=== PATIENT | female | born 1965 | race Native Hawaiian/Other Pacific Islander ===

== ENCOUNTER 2017-06-24 11:52 | Emergency (ER) | payer OTHER ==
[2017-06-24] MEDS: KETOROLAC 30 MG/ML VIAL (J1885) IV (12:48)
[2017-06-24 12:57] LABS: BASO % 0.4 % (0.0-1.0); EOS # 0.7 10^3/uL (0.0-0.50); EOS % 7.6 % (0.0-3.0); HEMATOCRIT 42.6 % (36.0-47.0); HEMOGLOBIN 13.7 g/dl (12.0-15.5); IMMATURE GRANULOCYTE % 0.1 % (0-3.0); LYMPH # 3.5 10^3/uL (1.5-4.5); LYMPH % 37.6 % (24.0-44.0); MEAN CORPUSCULAR HEMOGLOBIN 28.9 pg (27.0-33.0); MEAN CORPUSCULAR HGB CONC 32.2 g/dl (32.0-36.5); MEAN CORPUSCULAR VOLUME 89.9 fl (80.0-96.0); MONO # 0.8 10^3/uL (0.0-0.8); MONO % 8.2 % (0.0-5.0); NEUTROPHILS # 4.3 10^3/uL (1.8-7.7); NEUTROPHILS % 46.1 % (36.0-66.0); PLATELET COUNT, AUTOMATED 322 10^3/uL (150-450); RED BLOOD COUNT 4.74 10^6/uL (4.00-5.40); RED CELL DISTRIBUTION WIDTH 12.9 % (11.5-14.5); WHITE BLOOD COUNT 9.2 10^3/uL (4.0-10.0)
[2017-06-24 13:09] LABS: CONTROL LINE MONO INT CTR LINE PRESENT; MONO SCRN NEGATIVE (NEGATIVE)
[2017-06-24 13:15] LABS: ANION GAP 5 MEQ/L (8-16); BLOOD UREA NITROGEN 13 MG/DL (7-18); C REACTIVE PROTEIN QUANTITATIV 0.34 MG/DL (0.00-0.30); CALCIUM LEVEL 8.7 MG/DL (8.5-10.1); CARBON DIOXIDE LEVEL 29 MEQ/L (21-32); CHLORIDE LEVEL 110 MEQ/L (98-107); CREATININE FOR GFR 0.65 MG/DL (0.55-1.30); GLOMERULAR FILTRATION RATE > 60.0 (>58); GLUCOSE, FASTING 93 MG/DL (70-100); POTASSIUM SERUM 3.7 MEQ/L (3.5-5.1); SODIUM LEVEL 144 MEQ/L (136-145)
[2017-06-24] MEDS ORDERED: ISOVUE-370 76% 100ML VIAL (Q9967) As Ordered (13:39)
[2017-06-24 14:02] LABS: ERYTHROCYTE SEDIMENTATION RATE 7 mm/hr (0-20)
[2017-06-24 14:27] LABS: FREE THYROXINE INDEX 3.4 % (1.3-4.8); T UPTAKE 33 % (30-39); THYROID STIMULATING HORMONE 0.758 uIU/ML (0.358-3.740); THYROXINE (T4) 10.2 UG/DL (4.5-12.0)
== END 2017-06-24 14:52 | disposition home or self-care (01) ==
LOC: M ED 11:52
DX: E04.2 Nontoxic multinodular goiter (principal)
CPT/HCPCS: Q9967

== ENCOUNTER → 2017-07-20 | Outpatient (CLI) | payer MEDICAID, OTHER | LOC: M RAD 10:02 | DX: E04.9 Nontoxic goiter, unspecified (principal) | CPT/HCPCS: 76536 ==

== ENCOUNTER 2017-09-03 18:08 | Emergency (ER) | payer MEDICAID ==
[2017-09-03] MEDS: TETRACAINE 0.5% OPHTH SOLN 4ML OS (18:43)
== END 2017-09-03 19:17 | disposition home or self-care (01) ==
LOC: M ED 18:08
DX: H10.32 Unspecified acute conjunctivitis, left eye (principal); Z72.0 Tobacco use
CPT/HCPCS: 99283

== ENCOUNTER 2017-10-06 12:30 | Emergency (ER) | payer MEDICAID | END 2017-10-06 16:33 | disposition home or self-care (01) | LOC: M ED 12:30 | DX: S60.012A Contusion of left thumb without damage to nail, initial encounter (principal); W23.0XXA Caught, crushed, jammed, or pinched between moving objects, initial encounter; Y92.009 Unspecified place in unspecified non-institutional (private) residence as the place of occurrence of the external cause | CPT/HCPCS: 73130 ==

== ENCOUNTER 2018-10-13 17:24 | Emergency (ER) | payer MEDICAID, SELFPAY ==
[~2018-10-13] VITALS: Ht 172.7 cm; Wt 118.2 kg
[~2018-10-13 17:24] MED LIST: NAPR-837 PO; POLYSOL OS; eye drop OS
[2018-10-13] MEDS ORDERED: NITROGLYCERIN 0.4 MG SUBL TABLET SL STA (17:58)
[2018-10-13] MEDS ORDERED: ASPIRIN 81 MG CHEW TABLET PO ONE (18:00)
[2018-10-13] MEDS ORDERED: methylPREDNISolone INJ 125 MG/2 ML VIAL (J2930) IV ONE (18:00)
[2018-10-13] MEDS: IPRATROPIUM 0.5MG/ALBUTEROL 2.5MG INH SOL UD 3ML (DUONEB)(J7620) NEB PRN ×4 (18:08→19:23)
[2018-10-13 18:21] LABS: BASO # 0.1 10^3/uL (0.0-0.2); BASO % 0.7 % (0.0-1.0); EOS # 0.9 10^3/uL (0.0-0.50); EOS % 8.7 % (0.0-3.0); HEMATOCRIT 44.8 % (36.0-47.0); HEMOGLOBIN 14.1 g/dl (12.0-15.5); LYMPH % 40.2 % (24.0-44.0); MEAN CORPUSCULAR HEMOGLOBIN 28.5 pg (27.0-33.0); MEAN CORPUSCULAR HGB CONC 31.5 g/dl (32.0-36.5); MEAN CORPUSCULAR VOLUME 90.7 fl (80.0-96.0); MONO # 0.7 10^3/uL (0.0-0.8); MONO % 7.2 % (0.0-5.0); NEUTROPHILS # 4.3 10^3/uL (1.8-7.7); PLATELET COUNT, AUTOMATED 314 10^3/uL (150-450); RED BLOOD COUNT 4.94 10^6/uL (4.00-5.40)
--- NOTE | 2018-10-13 18:46 | REP ---
Clinical: Chest pain . Comparison: None . Technique: Lateral chest x-ray Findings: Examination is read in conjunction with portable AP chest. The mediastinum and cardiac silhouette are normal. The lung cerda are clear and without acute consolidation, effusion, or pneumothorax. The skeletal structures are intact and normal. Impression: 1. No acute cardiopulmonary process. Electronically Signed by Blas Wilkinson MD 10/13/2018 06:38 P
--- NOTE | 2018-10-13 18:47 | REP ---
Clinical: Chest pain . Comparison: None . Technique: Portable upright AP chest. Findings: Examination is read in conjunction with lateral chest. The mediastinum and cardiac silhouette are normal. The lung cerda are clear and without acute consolidation, effusion, or pneumothorax. The skeletal structures are intact and normal. Impression: 1. No acute cardiopulmonary process. Electronically Signed by Blas Wilkinson MD 10/13/2018 06:39 P
[2018-10-13 19:03] LABS: ALBUMIN 3.5 GM/DL (3.2-5.2); ALT/SGPT 20 U/L (12-78); BILIRUBIN,DIRECT < 0.1 MG/DL (0.0-0.2); BILIRUBIN,TOTAL 0.2 MG/DL (0.2-1.0); BLOOD UREA NITROGEN 18 MG/DL (7-18); CALCIUM LEVEL 8.6 MG/DL (8.5-10.1); CARBON DIOXIDE LEVEL 27 MEQ/L (21-32); CHLORIDE LEVEL 109 MEQ/L (98-107); CK-MB VALUE MASS < 1.0 NG/ML (<3.6); CPK CREATINE PHOSPHOKINASE 88 U/L (26-192); CREATININE FOR GFR 0.71 MG/DL (0.55-1.30); GLOMERULAR FILTRATION RATE > 60.0 (>51); GLUCOSE, FASTING 88 MG/DL (70-100); LIPASE 70 U/L (73-393); MB/CK RELATIVE INDEX 1.14 (< OR =4); POTASSIUM SERUM 4.3 MEQ/L (3.5-5.1); SODIUM LEVEL 143 MEQ/L (136-145); TOTAL PROTEIN 7.4 GM/DL (6.4-8.2); TROPONIN I < 0.02 NG/ML (< 0.10)
[2018-10-13 20:20] VITALS: O2SAT 94
[2018-10-13] MEDS ORDERED: VENTAER INH (20:48)
[2018-10-13] MEDS ORDERED: PRED20TA PO (20:56)
[2018-10-13 21:00] VITALS: BP 126/69
--- NOTE | 2018-10-14 07:45 | ECGEPIP ---
[facility] - ED Test Date: 2018-10-13 Pat Name: TIMMY GEORGE Department: Room: - Gender: Female Medical Care Manager: trish : [id number] Requested By: Natasha Molina Order Number: [id number] Reading MD: Galileo Clements Measurements Intervals [place] Rate: 72 P: 67 NH: 163 QRS: 7 QRSD: 98 T: 31 QT: 394 QTc: 434 Interpretive Statements SINUS RHYTHM BASELINE ARTIFACT AFFECTS INTERPRETATION NO PRIORS FOR COMPARISON Electronically Signed on 10-14-2018 7:45:23 EDT by Galileo Clements
== END 2018-10-13 21:24 | disposition home or self-care (01) ==
LOC: M ED 17:24
DX: R06.2 Wheezing (principal); R07.89 Other chest pain; R06.02 Shortness of breath; F17.200 Nicotine dependence, unspecified, uncomplicated
CPT/HCPCS: 71045; 80048; 80076; 82550; 82553; 83690; 84484; 85025; 85379; 93005; 93041; 94640; 94760; 96374; 99285; J2930